=== PATIENT | female | born 1990 | race Caucasian/White ===

== ENCOUNTER 2023-10-04 10:13 | Outpatient (CLI) | payer OTHER, SELFPAY | END 2023-10-04 10:14 | disposition home or self-care (01) | PROVIDERS: PCP Family Medicine; Visit Provider Family Medicine | DX: Z00.00 Encounter for general adult medical examination without abnormal findings (principal); R53.83 Other fatigue; E55.9 Vitamin D deficiency, unspecified; E66.01 Morbid (severe) obesity due to excess calories; F41.1 Generalized anxiety disorder; Z13.6 Encounter for screening for cardiovascular disorders | CPT/HCPCS: 80048; 80061; 82306; 84443; 85025 ==

== ENCOUNTER 2023-11-08 15:51 | Outpatient (CLI) | payer OTHER, SELFPAY ==
--- NOTE | 2023-11-08 16:00 | US_ITS ---
Patient: KAREN CAMARENA Facility:?[facility] RIS Patient ID:?[id number] Site Patient ID:?[id number]. Site :?[id number] Study:?US-Pelvis TA/TV-11/08/2023 5:12:51 PM Ordering Physician:IRA Final Report: INDICATION: Menorrhagia. COMPARISON: None. TECHNIQUE: 2D mary scale and color Doppler images were acquired of the pelvis using a transabdominal and transvaginal approach. FINDINGS: Sonographic images demonstrate a normal size and smooth outer contour of the uterus. The uterus is anteverted in position. The uterus measures 11.2 cm in length by 4.5 cm in AP diameter by 7.2 cm in transverse dimension. The myometrium has uniform echotexture. The endometrial lining measures 10 mm in composite thickness. Nabothian cysts in the cervix. The right ovary measures 2.9 x 1.8 x 1.9 cm and the left ovary measures 4.1 x 3.0 x 3.0 cm. Blood flow is present within both ovaries. There is a 2.7 cm dominant follicle in the left ovary. No free fluid in the pelvic cul-de-sac. IMPRESSION: 1. Endometrial stripe is within normal limits measuring 10 mm. 2. Dominant follicle in the left ovary. 3. Exam otherwise unremarkable. Dictated by Carey Guerrero MD @ 11/09/2023 3:41:45 AM Signed by:?Carey Guerrero MD @11/09/2023 3:41:45 AM (Electronic Signature)
== END 2023-11-08 15:52 | disposition home or self-care (01) ==
LOC: US 15:52
PROVIDERS: PCP Family Medicine; Visit Provider Obstetrics & Gynecology
DX: N93.9 Abnormal uterine and vaginal bleeding, unspecified (principal); R93.89 Abnormal findings on diagnostic imaging of other specified body structures; N83.02 Follicular cyst of left ovary
CPT/HCPCS: 76830; 76856

== ENCOUNTER 2024-11-13 15:27 | Outpatient (CLI) | payer OTHER, SELFPAY | END 2024-11-13 15:28 | disposition home or self-care (01) | LOC: NFLDREF 11-15 07:03 | PROVIDERS: PCP Family Medicine; Referring Provider Family Medicine; Visit Provider Registered Nurse | DX: K21.9 Gastro-esophageal reflux disease without esophagitis (principal) | CPT/HCPCS: 87338 ==

== ENCOUNTER 2025-03-01 12:19 | Outpatient (CLI) | payer OTHER, SELFPAY | END 2025-03-01 12:20 | disposition home or self-care (01) | PROVIDERS: PCP Family Medicine; Visit Provider Family Medicine | DX: Z01.818 Encounter for other preprocedural examination (principal); K21.9 Gastro-esophageal reflux disease without esophagitis | CPT/HCPCS: 80048; 85025 ==

== ENCOUNTER 2025-03-17 10:37 | Emergency (ER) | payer OTHER, SELFPAY ==
--- OUTSIDE RECORDS SUMMARY | 2025-03-04 08:09 | XMS_ITS | Encounter Summary ---
Author Organization [facility] Address [address] [place] [id number] Care Team Providers Care [place]re Name Role Phone Dayton Hendricks MD Primary Care Provider [phone] Reason for Visit * Auth/Cert (Routine) Specialty Diagnoses / Procedures Referred By Contjam t Referred To Contact Surgery Diagnoses Gastroesophageal reflux Heartburn Gastroesophageal reflux [K21.9] Heartburn [R12] Procedures [place] UGI ENDOSCOPY DIAG W OR W/O BRUSH/WASH [place] EGD FLEXIBLE TRANSNASAL DX W/COLLJ SPEC BR/WA ESOPHAGOGASTRODUODENOSCOPY Quique Madrigal MD [facility] [address] [place] [address] [place] [address] Phone: tel: fax: [facility]Op [facility] [address] [place] [address] Phone: tel: fax: Referral ID Status Reason Start Date Expiration Date Visits Re quested Visits Authorized [id number] 1 1 Encounter Details Date Type Department Care Team (Latest Contact Info) Description 03/04/2025 8:09 AM CDT - 03/04/2025 10:59 AM CDT Hospital Encounter [facility] PreOP/PostOP [address] [place] [address] Quique Madrigal MD [facility] [address] [place] [address] [place] [address] Discharge Disposition: Home or Self Care Social History Tobacco Use Types Packs/Day Years Used Date Smoking Tobacco: Never Smokeless Tobacco: Never Tobacco Cessation:Counseling Given: Not Answered Interpersonal Safety Answer Date Record ed Do you feel physically and e motionally safe where you currently live? Yes 03/04/2025 Within the past 12 months, h ave you been hit, slapped, kicked or otherwise physically hurt by someone? No 03/04/2025 Within the past 12 months, h ave you been humiliated or emotionally abused in other ways by your partner or ex-partner? No 03/04/2025 Comments Unknown Sex and Gender Information Value Date Recorded Sex Assigned at Female 01/30/2025 1:59 PM CDT Legal Sex Female 2:43 PM CDT Gender Identity Female 01/30/2025 1:59 PM CDT Sexual Orientation Straight 01/30/2025 1: 59 PM CDT documented as of this encounter Last Filed Vital Signs Vital Sign Reading Time Taken Comments Blood Pressure 135/92 03/04/2025 10:45 AM CDT Pulse 97 03/04/2025 10:45 AM CDT Temperature 36.9 C (98.4 F) 03/04/2025 10:45 AM CDT Respiratory Rate 16 03/04/2025 10:4 5 AM CDT Oxygen Saturation 97% 03/04/2025 10: 45 AM CDT Inhaled Oxygen Concentration - - Weight 149.5 kg (329 lb 9.6 oz) 03/04/2025 8:15 AM CDT Height 167.6 cm (5' 6) 03/04/2025 8:15 AM CDT Body Mass Index 53.2 03/04/2025 8:15 AM CDT documented in this encounter Discharge Instructions * Discharge Instructions* Rylee Nguyen RN - 03/04/2025 10:12 AM CDT ESOPHAGOGASTRODUODENOSCOPY DISCHARGE INSTRUCTIONS You may not drive, use heavy equipment or consume alcohol for 24 hours because the drugs you were given may cause dizziness, drowsiness, forgetfulness and slower reaction time. Small pieces or tissue (biopsies) or polyps may have been removed. You may resume your regular diet and medications. Exception: If you had a biopsy or polypectomy, donot take aspirin, aleve (naproxen) or ibuprofen for the next 10 days. Tylenol (acetaminophen) is safe to take. Additional instructions: If you had a biopsy or polypectomy, the pathology report will be sent to your doctor. If you have not received the results within 10 days, call your doctor's office. What to watch for: Problems rarely occur after the procedure. It is important for you to be aware of the early signs of a possible complication. Call immediately if you notice any of the followin. Unusual pain or difficulty swallowing. 2. Unusual abdominal or chest pain. 3. Vomiting of blood. 4. Black or bloody stools. 5. Temperature above 100.6 degrees F * Attachments The following attachments cannot be sent through Care Everywhere. * (s) After Anesthesia (Sleep Medicine) ([place]) documented in this encounter Medications at Time of Discharge Bacillus Coagulans-Inulin (PROBIOTIC) 1-250 BILLION-MG CAPS CALCIUM-MAGNESIUM -ZINC PO escitalopram (LEXAPRO) 20 MG tablet Take 20 mg by mouth daily. 01/04/2024 fish oil-omega-3 fatty acids 1000 MG capsule fluticasone (FLONASE) 50 MCG/ACT nasal spray [place] 1 spray into both nostrils daily. loratadine (CLARITIN) 10 MG tablet Take 10 mg by mouth daily. Multiple Vitamin (MULTI-VITAMIN DAILY) TABS omeprazole (PRILOSEC) [address] capsule Take 20 mg by mouth daily. 01/04/2024 Vitamin D3 (CHOLECALCIFEROL) 25 mcg (1000 units) tablet documented as of this encounter Consult Notes * Quique Madrigal MD - 03/04/2025 8:25 AM CDT Pre-Endoscopy History and Physical Shweta Pearson Date of : 1990 Age: [age] year old Date of Procedure: 03/04/2025 Primary care provider: Hendricks, Nate Type of Endoscopy: esophagogastroduodenoscopy (upper GI endoscopy) Reason for Procedure: reflux Type of Anesthesia Anticipated: MAC HPI: Shweta is a 34 year old female who will be undergoing the above procedure. A history and physical has been performed. The patient's medications and allergies have been reviewed. The risks and benefits of the procedure and the sedation options and risks were discussed with the patient. All questions were answered and informed consent was obtained. She denies a personal or family history of anesthesia complications or bleeding disorders. Allergies Allergen Reactions Penicillins Hives and Rash Current Facility-Administered Medications Medication Dose Route Frequency Provider Last Rate Last Admin lactated ringers infusion Intravenous Continuous Walter Mejia MD lidocaine (LMX4) cream Topical Q1H PRN Walter Mejia MD lidocaine (LMX4) cream Topical Q1H PRN Quique Madrigal MD lidocaine 1 % 0.1-1 mL 0.1-1 mL Other Q1H PRN Walter Mejia MD lidocaine 1 % 0.1-1 mL 0.1-1 mL Other Q1H PRQuique Lane MD ondansetron (ZOFRAN) injection 4 mg 4 mg Intravenous Once PRN Quique Madrigal MD sodium chloride (PF) 0.9% PF flush 3 mL 3 mL Intracatheter Q8H Walter Thibodeaux MD sodium chloride (PF) 0.9% PF flush 3 mL 3 mL Intracatheter q1 min prWalter Mabry MD sodium chloride (PF) 0.9% PF flush 3 mL 3 mL Intracatheter Q8H Quique Pressley MD sodium chloride (PF) 0.9% PF flush 3 mL 3 mL Intracatheter q1 min Quique Ames MD There is no problem list on file for this patient. History reviewed. No pertinent past medical history. History reviewed. No pertinent surgical history. Social History Tobacco Use Smoking status: Never Smokeless tobacco: Never Substance Use Topics Alcohol use: Not on file History reviewed. No pertinent family history. REVIEW OF SYSTEMS: 5 point ROS negative except as noted above in HPI, including Gen., Resp., CV, GI & system review. PHYSICAL EXAM: BP (!) 140/74 (BP Location: Left arm) Pulse 101 Temp 98 ??F (36.7 ??C) (Temporal) Resp 18 Ht 1.676 m (5' 6) Wt (!) 149.5 kg (329 lb 9.6 oz) SpO2 99% BMI 53.20 kg/m?? Estimated body mass index is 53.2 kg/m?? as calculated from the following: Height as of this encounter: 1.676 m (5' 6). Weight as of this encounter: 149.5 kg (329 lb 9.6 oz). GENERAL APPEARANCE: healthy MENTAL STATUS: alert AIRWAY EXAM: Mallampatti Class I (visualization of the soft palate, fauces, uvula, anterior and posterior pillars) RESP: lungs clear to auscultation - no rales, rhonchi or wheezes CV: regular rates and rhythm DIAGNOSTICS: Not indicated IMPRESSION ASA Class 2 - Mild systemic disease PLAN: EGD The above has been forwarded to the consulting provider. Signed Electronically by: Quique Madrigal MD March 04, 2025 documented in this encounter Plan of Treatment Not on file documented as of this encounter Procedures Procedure Name Priority Date/Time Associated Diagnosis Comments SURGICAL PATHOLOGY EXAM Routine 03/04/2025 9:57 AM CDT UGI ENDOSCOPY DIAG W BIOPSY 03/04/2025 9:50 AM CDT Gastroesophageal reflux Heartburn Special Needs Pre-op done at [facility] 03/01/25. Called to have faxed at 1400 but MD had not signed it yet. Vh Nothing has been received as of 1600 03/01/25. Called again to have pre-op faxed at 0805 03/04/25.vhHigh bmi UPPER GI ENDOSCOPY Routine 03/04/2025 9:42 AM CDT documented in this encounter Results * Surgical Pathology Exam (03/04/2025 9:57 AM CDT) Case Report Surgical Pathology Report Case: [id number] Authorizing Provider: Quique Madrigal MD Collected: 03/04/2025 09:57 AM Ordering Location: [facility] Received: 03/04/2025 10:09 AM Main OR Pathologist: Darlin Verdugo MD Specimens: A) - Stomach, Body, gastric biopsies B) - Esophagus, Distal, distal esophagus biopsy C) - Esophagus, Mid, mid esophagus biopsies 03/06/2025 10:27 AM CDT LABORATORY Final Diagnosis A(1). Stomach, biopsy: - Oxyntic type gastric mucosa with mild chronic inflammation. - Negative for H. Pylori organisms on routine stains. - Negative for intestinal metaplasia. -Negative for dysplasia or malignancy B(2). Esophagus, distal, biopsy: -Squamous mucosa with focal acute inflammation and reactive epithelial changes of the type seen in reflux esophagitis -Special stains for fungal organisms (PAS) is negative. -Negative for intestinal metaplasia. -Negative for eosinophilic esophagitis. -Negative for dysplasia or malignancy. C(3). Esophagus, middle, biopsies: -Squamous mucosa with no significant pathological changes. -Negative for intestinal metaplasia. -Negative for acute or eosinophilic esophagitis. -Negative for dysplasia or malignancy. 03/06/2025 10:27 AM [facility] at 1027 CDT Clinical Information Procedure: ESOPHAGOGASTRODUOD ENOSCOPY with biopsies Pre-op Diagnosis: Gastroesophageal reflux [K21.9] Heartburn [R12] Post-op Diagnosis: K21.9 - Gastroesophageal reflux [ICD-10-CM] R12 - Heartburn [ICD-10-CM] 03/06/2025 10:27 AM CDT LABORATORY Gross Description A(1). Stomach, Body, gastric biopsies: The specimen is received in formalin, labeled with the patient's name, medical record number and other identifying information and designated g astric biopsies . It consists of 5 chapa soft tissue fragments ranging from 0.1-0.2 cm. Entirely submitted in one cassette. B(2). Esophagus, Distal, distal esophagus biopsy: The specimen is received in formalin, labeled with the patient's name, medical record number and other identifying information and designated d istal esophagus . It consists of 3 chapa soft tissue fragments ranging from 0.1-0.2 cm. Entirely submitted in one cassette. C(3). Esophagus, Mid, mid esophagus biopsies: The specimen is received in formalin, labeled with the patient's name, medical record number and other identifying information and designated m id esophagus . It consists of two chapa soft tissue fragments, each 0.2 cm. Entirely submitted in one cassette. (AZEEM Lenz) 03/04/2025 10:13 AM 03/06/2025 10:27 AM CDT LABORATORY Microscopic Description Microscopic examination was performed. 03/06/2025 10:27 AM CDT LABORATORY Special Stains Part B -Special stains for fungal organisms (PAS) is negative. All controls stain appropriately. 03/06/2025 10:27 AM CDT LABORATORY Performing Labs The technical component of this testing was completed at [facility]. Stain controls for all stains resulted within this report have been reviewed and show appropriate reactivity. 03/06/2025 10:27 AM CDT LABORATORY Case Images 03/06/2025 10:27 AM CDT LABORATORY Tissue STOMACH STRUCTURE / Unknown 03/04/2025 9:57 AM CDT 03/04/2025 10:09 AM CDT Comment:Rule out E.o.E and h .pylori Tissue specimen (specimen) STRUCTURE OF LOWER THIRD OF ESOPHAGUS / Unknown 03/04/2025 9:59 AM CDT 03/04/2025 10:09 AM CDT Tissue specimen (specimen) STRUCTURE OF MIDDLE THIRD OF ESOPHAGUS / Unknown 03/04/2025 10:00 AM CDT 03/04/2025 10:09 AM CDT us Quique Madrigal MD LAB - MIGUEL AP Final Resul t [facility] [address] Lab (1st floor, no room number) [place] [address], [facility] * UPPER GI ENDOSCOPY (03/04/2025 9:42 AM CDT) Upper GI Endoscopy [facility] ___ Patient Name: Shweta Pearson Procedure Date: 03/04/2025 9:42 AM Date of : 1990 Admit Type: Outpatient Age: 34 Gender: Female Attending MD: QUIQUE MADRIGAL MD, Total Sedation Time: Minutes of continuous bedside 1:1: Instrument Name: [id number] Gastroscope ___ Procedure: Upper GI endoscopy Indications: Suspected esophageal reflux Providers: QUIQUE MADRIGAL MD (Doctor) Referring MD: KALYANI SINHA (Referring MD) Medicines: Monitored Anesthesia Care Complications: No immediate complications. ___ Procedure: Pre-Anesthesia Assessment: - Prior to the procedure, a History and Physical was performed, and patient medications and allergies were reviewed. The patient is competent. The risks and benefits of the procedure and the sedation options and risks were discussed with the patient. All questions were answered and informed consent was obtained. Patient identification and proposed procedure were verified by the physician in the pre-procedure area. Mental Status Examination: alert and oriented. Airway Examination: normal oropharyngeal airway and neck mobility. Respiratory Examination: clear to auscultation. CV Examination: normal. Prophylactic Antibiotics: The patient does not require prophylactic antibiotics. Prior Anticoagulants: The patient has taken no anticoagulant or antiplatelet agents. ASA Grade Assessment: II - A patient with mild systemic disease. After reviewing the risks and benefits, the patient was deemed in satisfactory condition to undergo the procedure. The anesthesia plan was to use monitored anesthesia care (MAC). Immediately prior to administration of medications, the patient was re-assessed for adequacy to receive sedatives. The heart rate, respiratory rate, oxygen saturations, blood pressure, adequacy of pulmonary ventilation, and response to care were monitored throughout the procedure. The physical status of the patient was re-assessed after the procedure. After obtaining informed consent, the endoscope was passed under direct vision. Throughout the procedure, the patient's blood pressure, pulse, and oxygen saturations were monitored continuously. The Olympus Gastrointestinal Videoscope, Model #[id number]-1100 Censitrac # [id number], SN# [id number] was introduced through the mouth, and advanced to the second part of duodenum. The upper GI endoscopy was accomplished without difficulty. The patient tolerated the procedure well. Findings: The examined esophagus was normal. Biopsies were taken with a cold forceps for histology (mid & distal esophagus). The Z-line was regular and was found 40 cm from the incisors. The entire examined stomach was normal. Biopsies were taken with a cold forceps for histology. The examined duodenum was normal. Impression: - Normal esophagus. Biopsied (mid & distal). - Z-line regular, 40 cm from the incisors. - Normal stomach. Biopsied. - Normal examined duodenum. Recommendation: - Await pathology results. Procedure Code(s): --- Professional --- 10996, Esophagogastroduode noscopy, flexible, transoral; with biopsy, single or multiple CPT copyright 2021 [employer]. All rights reserved. The codes documented in this report are preliminary and upon instructional services specialist review may be revised to meet current compliance requirements. Quique Madrigal M.D. __ QUIQUE MADRIGAL MD 03/04/2025 10:05:57 AM Number of Addenda: 0 Note Initiated On: 03/04/2025 9:42 AM Procedure Date: 03/04/2025 9:42:39 AM Total Procedure Duration: 0 hours 5 minutes 40 seconds Estimated Blood Loss: Scope In: 9:55:34 AM Scope Out: 10:01:14 AM RADIOLOGY RESULTS 03/04/2025 9:42 AM CDT us Kalyani Sinha SCHEDULING CLERK QUALITY MANAGEMENT COORDINATOR PROCEDURES Final Res ult RADIOLOGY RESULTS documented in this encounter Visit Diagnoses Not on filedocumented in this encounter Administered Medications Inactive Administered Medications - up to 3 most recent administrations Medication Order MAR Action Action Date Dose Rate Site acetaminophen (TYLENOL) tablet 975 mg 975 mg, Oral, ONCE PRN, mild pain, Starting on Tue03/04/25 at 1015, For 1 dose, Maximum acetaminophen dose from all sources = 75 mg/kg/day not to exceed 4 grams/day., Phase ll dexAMETHasone (DECADRON) injection 4 mg 4 mg, Intravenous, ONCE PRN, nausea/vomiting - 2nd line, Phase II, Administer over 1 Minutes, Starting on Tue03/04/25 at 1015, For 1 dose, Administer ONLY if dexamethasone (DECADRON) NOT given in the OR. This is Step 2 of nausea and vomiting management. IF nausea vomiting NOT resolved within 30 minutes or dexamethasone (DECADRON) was given in the OR go to Step 3 prochlorperazine (COMPAZINE)., Phase ll flumazenil (ROMAZICON) injection 0.2 mg 0.2 mg, Intravenous, EVERY 1 MIN PRN, benzodiazepine reversal, over sedation, Administer over 1 Minutes, Starting on Tue03/04/25 at 1015, For 12 hours, Give over 15 seconds. If inadequate response after 45 seconds, may repeat up to a MAX total dose of 1 mg. Continue monitoring until discharge criteria are met for a minimum of 2 hours Use with caution in patients on benzodiazepine therapy. lactated ringers infusion at 10 mL/hr, Intravenous, CONTINUOUS, IF patient NOT on dialysis., Pre-procedure, Starting on Tue03/04/25 at 0830, Until Tue03/04/25 at 1304 Restarted 03/04/2025 9:45 AM CDT $New Bag 03/04/2025 8:49 AM CDT 10 mL/hr lidocaine (LMX4) cream Topical, EVERY 1 HOUR PRN, pain, with VAD insertion, Starting on Tue03/04/25 at 0818, Apply at least 30 minutes prior to VAD insertion in divided doses as needed for size of site for insertion. MAX Dose: 2.5 g ( of 5 g tube) Do NOT give if patient has a history of allergy to any local anesthetic or any tara product. Do NOT use both lidocaine intradermal/subcutaneous injection and the lidocaine cream on the same site., Pre-procedure lidocaine (LMX4) cream Topical, EVERY 1 HOUR PRN, pain, with VAD insertion, Starting on Tue03/04/25 at 0824, Apply at least 30 minutes prior to VAD insertion in divided doses as needed for size of site for insertion. MAX Dose: 2.5 g ( of 5 g tube) Do NOT give if patient has a history of allergy to any local anesthetic or any tara product. Do NOT use both lidocaine intradermal/subcutaneous injection and the lidocaine cream on the same site., Pre-procedure lidocaine 1 % 0.1-1 mL 0.1-1 mL, Other, EVERY 1 HOUR PRN, mild pain with VAD insertion, Starting on Tue03/04/25 at 0818, MAX dose 1 mL subcutaneous OR intradermal along the side of the vein in divided doses as needed for VAD insertion. Do NOT give if patient has a history of allergy to any local anesthetic or any tara product. Do NOT use both lidocaine intradermal/subcutaneous injection and the lidocaine cream on the same site., Pre-procedure lidocaine 1 % 0.1-1 mL 0.1-1 mL, Other, EVERY 1 HOUR PRN, mild pain with VAD insertion, Starting on Tue03/04/25 at 0824, MAX dose 1 mL subcutaneous OR intradermal along the side of the vein in divided doses as needed for VAD insertion. Do NOT give if patient has a history of allergy to any local anesthetic or any tara product. Do NOT use both lidocaine intradermal/subcutaneous injection and the lidocaine cream on the same site., Pre-procedure naloxone (NARCAN) injection 0.1 mg 0.1 mg, Intravenous, EVERY 2 MIN PRN, opioid reversal, Starting on Tue03/04/25 at 1015, Notify Anesthesia Provider when administering naloxone (NARCAN) for unintended sedation or respiratory depression IF all three of the following criteria are met: 1. Respiratory rate LESS than or EQUAL to 8. 2. SaO2 is LESS than 92% and/or end-tidal CO2 is GREATER than 50. 3. Patient is receiving an opioid, has unintended sedation assessed as RASS (-4) or (-5) and patient is NOT currently on mechanical ventilation. RASS scale (-4) is deep sedation with no response to voice but movement or eye opening to physical stimulation. RASS scale (-5) is unarousable. Notify Anesthesia Provider PRIOR to administering additional opioids if naloxone (NARCAN) given. Once patient has demonstrated a response to naloxone (NARCAN), continue to monitor respiratory rate, depth, oxygen saturation EVERY 15 minutes x 2, then EVERY 30 minutes x 2, then EVERY hour x 1 after each naloxone (NARCAN) dose. Monitor in Phase II for 2 hours after last naloxone (NARCAN) dose PRIOR to discharge., Phase ll naloxone (NARCAN) injection 0.2 mg 0.2 mg, Intravenous, EVERY 2 MIN PRN, opioid reversal, Starting on Tue03/04/25 at 1015, Administer intravenous route when available and notify provider when administered. For unintended sedation or respiratory depression if all of the below criteria are met: ~ respiratory rate LESS than or EQUAL to 8. ~SaO2 less than 92% and or/end-tidal CO2 is greater than 50. ~ the patient is receiving an opioid, has unintended sedations assessed as RASS (-3), and is currently not on mechanical ventilation. RASS scale moderate (-3) is movement or eye opening to voice but no eye contact. Patient Monitoring Once the patient has demonstrated a response to the naloxone, continue to monitor respiratory rate, depth, oxygen saturation and end-tidal CO2 (if available) every 15 minutes x 2, then every 30 minutes x 2, then every 1 hour x 1 after each naloxone dose. Consider transfer to ICU if patient respiratory parameters have not improved after 4 naloxone doses. naloxone (NARCAN) injection 0.2 mg 0.2 mg, Intramuscular, EVERY 2 MIN PRN, opioid reversal, Starting on Tue03/04/25 at 1015, Administer intramuscular if an intravenous route is not available and notify provider when administered. For unintended sedation or respiratory depression if all of the below criteria are met: ~ respiratory rate LESS than or EQUAL to 8. ~SaO2 less than 92% and or/end-tidal CO2 is greater than 50. ~ the patient is receiving an opioid, has unintended sedations assessed as RASS (-3), and is currently not on mechanical ventilation. RASS scale moderate (-3) is movement or eye opening to voice but no eye contact. Patient Monitoring Once the patient has demonstrated a response to the naloxone, continue to monitor respiratory rate, depth, oxygen saturation and end-tidal CO2 (if available) every 15 minutes x 2, then every 30 minutes x 2, then every 1 hour x 1 after each naloxone dose. Consider transfer to ICU if patient respiratory parameters have not improved after 4 naloxone doses. naloxone (NARCAN) injection 0.4 mg 0.4 mg, Intravenous, EVERY 2 MIN PRN, opioid reversal, Starting on Tue03/04/25 at 1015, Administer intravenous route when available and notify provider when administered. For unintended sedation or respiratory depression if all of the below criteria are met: ~ respiratory rate LESS than or EQUAL to 8. ~ SaO2 less than 92% and or/end-tidal CO2 is greater than 50. ~ the patient is receiving an opioid, has unintended sedation assessed as RASS (-4) or (-5) and patient is currently not on mechanical ventilation. RASS scale (-4) is deep sedation with no response to voice but movement or eye opening to physical stimulation. RASS scale (-5) is unarousable. Patient Monitoring Once the patient has demonstrated a response to the naloxone, continue to monitor respiratory rate, depth, oxygen saturation and end-tidal CO2 (if available) every 15 minutes x 2, then every 30 minutes x 2, then every 1 hour x 1 after each naloxone dose. Consider transfer to ICU if patient respiratory parameters have not improved after 4 naloxone doses. naloxone (NARCAN) injection 0.4 mg 0.4 mg, Intramuscular, EVERY 2 MIN PRN, opioid reversal, Starting on Tue03/04/25 at 1015, Administer intramuscular if an intravenous route is not available and notify provider when administered. For unintended sedation or respiratory depression if all of the below criteria are met: ~ respiratory rate LESS than or EQUAL to 8. ~ SaO2 less than 92% and or/end-tidal CO2 is greater than 50. ~ the patient is receiving an opioid, has unintended sedation assessed as RASS (-4) or (-5) and patient is currently not on mechanical ventilation. RASS scale (-4) is deep sedation with no response to voice but movement or eye opening to physical stimulation. RASS scale (-5) is unarousable. Patient Monitoring Once the patient has demonstrated a response to the naloxone, continue to monitor respiratory rate, depth, oxygen saturation and end-tidal CO2 (if available) every 15 minutes x 2, then every 30 minutes x 2, then every 1 hour x 1 after each naloxone dose. Consider transfer to ICU if patient respiratory parameters have not improved after 4 naloxone doses. ondansetron (ZOFRAN ODT) ODT tab 4 mg 4 mg, Oral, EVERY 6 HOURS PRN, nausea, vomiting, Starting on Tue03/04/25 at 1015, This is Step 1 of nausea and vomiting management. If nausea not resolved in 15 minutes, go to Step 2 prochlorperazine (COMPAZINE). Do not push through foil backing. Peel back foil and gently remove. Place on tongue immediately. Administration with liquid unnecessary With dry hands, peel back foil backing and gently remove tablet. Do not push oral disintegrating tablet through foil backing. Administer immediately on tongue and oral disintegrating tablet dissolves in seconds, then swallow with saliva. Liquid not required. ondansetron (ZOFRAN ODT) ODT tab 4 mg 4 mg, Oral, EVERY 30 MIN PRN, nausea/vomiting - 1st line, Phase II, Starting on Tue03/04/25 at 1015, For 2 doses, Administer if NO vascular access present. This is Step 1 of nausea and vomiting management. If nausea/vomiting not resolved in 15 minutes, go to Step 2 dexamethasone (DECADRON) IV. MAX total dose = 8 mg, including OR dosing. With dry hands, peel back foil backing and gently remove tablet. Do not push oral disintegrating tablet through foil backing. Administer immediately on tongue and oral disintegrating tablet dissolves in seconds, then swallow with saliva. Liquid not required., Phase ll ondansetron (ZOFRAN) injection 4 mg 4 mg, Intravenous, EVERY 6 HOURS PRN, nausea, vomiting, Administer over 2-5 Minutes, Starting on Tue03/04/25 at 1015, This is Step 1 of nausea and vomiting management. If nausea not resolved in 15 minutes, go to Step 2 prochlorperazine (COMPAZINE). ondansetron (ZOFRAN) injection 4 mg 4 mg, Intravenous, EVERY 30 MIN PRN, nausea/vomiting - 1st line, Phase II, Administer over 2-5 Minutes, Starting on Tue03/04/25 at 1015, For 2 doses, This is Step 1 of nausea and vomiting management. If nausea/vomiting not resolved in 15 minutes, then go to Step 2 dexamethasone (DECADRON) IV. MAX total dose = 8 mg, including OR dosing., Phase ll prochlorperazine (COMPAZINE) injection 10 mg 10 mg, Intravenous, EVERY 6 HOURS PRN, nausea, vomiting, Administer over 1-2 Minutes, Starting on Tue03/04/25 at 1015, This is Step 2 of nausea and vomiting management. If nausea not resolved in 15-30 minutes, Notify provider. prochlorperazine (COMPAZINE) injection 5 mg 5 mg, Intravenous, EVERY 6 HOURS PRN, nausea/vomiting - 3rd line, Phase II, Administer over 1-2 Minutes, Starting on Tue03/04/25 at 1015, This is Step 3 of the nausea and vomiting protocol. If nausea/vomiting not resolved in 15-30 minutes, notify Provider., Phase ll prochlorperazine (COMPAZINE) tablet 10 mg 10 mg, Oral, EVERY 6 HOURS PRN, nausea, vomiting, Starting on Tue03/04/25 at 1015, This is Step 2 of nausea and vomiting management. If nausea not resolved in 15- 30 minutes, Notify provider. sodium chloride (PF) 0.9% PF flush 3 mL 3 mL, Intracatheter, EVERY 8 HOURS SCHEDULED, First dose on Tue03/04/25 at 1400, to lock peripheral IV dormant line, Pre-procedure sodium chloride (PF) 0.9% PF flush 3 mL 3 mL, Intracatheter, EVERY 1 MIN PRN, line flush, other, to ensure patency or to lock dormant line, Starting on Tue03/04/25 at 0818, Pre-procedure sodium chloride (PF) 0.9% PF flush 3 mL 3 mL, Intracatheter, EVERY 8 HOURS SCHEDULED, First dose on Tue03/04/25 at 1400, to lock peripheral IV dormant line, Pre-procedure sodium chloride (PF) 0.9% PF flush 3 mL 3 mL, Intracatheter, EVERY 1 MIN PRN, line flush, other, to ensure patency or to lock dormant line, Starting on Tue03/04/25 at 0824, Pre-procedure documented in this encounter Active and Recently Administered Medications Times are shown in CDT. Scheduled Medication Order 03/02/2025 03/03/2025 03/04/2025 sodium chloride (PF) 0.9% PF flush 3 mL 3 mL, Intracatheter, EVERY 8 HOURS SCHEDULED, First dose on Tue03/04/25 at 1400, to lock peripheral IV dormant line, Pre-procedure sodium chloride (PF) 0.9% PF flush 3 mL 3 mL, Intracatheter, EVERY 8 HOURS SCHEDULED, First dose on Tue03/04/25 at 1400, to lock peripheral IV dormant line, Pre-procedure Continuous Medication Order 03/02/2025 03/03/2025 03/04/2025 lactated ringers infusion at 10 mL/hr, Intravenous, CONTINUOUS, IF patient NOT on dialysis., Pre-procedure, Starting on Tue03/04/25 at 0830, Until Tue03/04/25 at 1304 0849 ($New Bag - Pro vider: Cierra Haskins RN)[id number] (Paused - Provider: Eber Hood APRN CRNA - Comment: Switch to gravity)0945 (Restarted - Provider: Eber Hood APRN CRNA)1004 (Anesthesia Volume Adjustment - Provider: Eber Hood APRN CRNA) PRN Medication Order 03/02/2025 03/03/2025 03/04/2025 acetaminophen (TYLENOL) tablet 975 mg 975 mg, Oral, ONCE PRN, mild pain, Starting on Tue03/04/25 at 1015, For 1 dose, Maximum acetaminophen dose from all sources = 75 mg/kg/day not to exceed 4 grams/day., Phase ll dexAMETHasone (DECADRON) injection 4 mg 4 mg, Intravenous, ONCE PRN, nausea/vomiting - 2nd line, Phase II, Administer over 1 Minutes, Starting on Tue03/04/25 at 1015, For 1 dose, Administer ONLY if dexamethasone (DECADRON) NOT given in the OR. This is Step 2 of nausea and vomiting management. IF nausea vomiting NOT resolved within 30 minutes or dexamethasone (DECADRON) was given in the OR go to Step 3 prochlorperazine (COMPAZINE)., Phase ll flumazenil (ROMAZICON) injection 0.2 mg 0.2 mg, Intravenous, EVERY 1 MIN PRN, benzodiazepine reversal, over sedation, Administer over 1 Minutes, Starting on Tue03/04/25 at 1015, For 12 hours, Give over 15 seconds. If inadequate response after 45 seconds, may repeat up to a MAX total dose of 1 mg. Continue monitoring until discharge criteria are met for a minimum of 2 hours Use with caution in patients on benzodiazepine therapy. lidocaine (LMX4) cream Topical, EVERY 1 HOUR PRN, pain, with VAD insertion, Starting on Tue03/04/25 at 0818, Apply at least 30 minutes prior to VAD insertion in divided doses as needed for size of site for insertion. MAX Dose: 2.5 g ( of 5 g tube) Do NOT give if patient has a history of allergy to any local anesthetic or any tara product. Do NOT use both lidocaine intradermal/subcutaneous injection and the lidocaine cream on the same site., Pre-procedure lidocaine (LMX4) cream Topical, EVERY 1 HOUR PRN, pain, with VAD insertion, Starting on Tue03/04/25 at 0824, Apply at least 30 minutes prior to VAD insertion in divided doses as needed for size of site for insertion. MAX Dose: 2.5 g ( of 5 g tube) Do NOT give if patient has a history of allergy to any local anesthetic or any tara product. Do NOT use both lidocaine intradermal/subcutaneous injection and the lidocaine cream on the same site., Pre-procedure lidocaine 1 % 0.1-1 mL 0.1-1 mL, Other, EVERY 1 HOUR PRN, mild pain with VAD insertion, Starting on Tue03/04/25 at 0818, MAX dose 1 mL subcutaneous OR intradermal along the side of the vein in divided doses as needed for VAD insertion. Do NOT give if patient has a history of allergy to any local anesthetic or any tara product. Do NOT use both lidocaine intradermal/subcutaneous injection and the lidocaine cream on the same site., Pre-procedure lidocaine 1 % 0.1-1 mL 0.1-1 mL, Other, EVERY 1 HOUR PRN, mild pain with VAD insertion, Starting on Tue03/04/25 at 0824, MAX dose 1 mL subcutaneous OR intradermal along the side of the vein in divided doses as needed for VAD insertion. Do NOT give if patient has a history of allergy to any local anesthetic or any tara product. Do NOT use both lidocaine intradermal/subcutaneous injection and the lidocaine cream on the same site., Pre-procedure naloxone (NARCAN) injection 0.1 mg 0.1 mg, Intravenous, EVERY 2 MIN PRN, opioid reversal, Starting on Tue03/04/25 at 1015, Notify Anesthesia Provider when administering naloxone (NARCAN) for unintended sedation or respiratory depression IF all three of the following criteria are met: 1. Respiratory rate LESS than or EQUAL to 8. 2. SaO2 is LESS than 92% and/or end-tidal CO2 is GREATER than 50. 3. Patient is receiving an opioid, has unintended sedation assessed as RASS (-4) or (-5) and patient is NOT currently on mechanical ventilation. RASS scale (-4) is deep sedation with no response to voice but movement or eye opening to physical stimulation. RASS scale (-5) is unarousable. Notify Anesthesia Provider PRIOR to administering additional opioids if naloxone (NARCAN) given. Once patient has demonstrated a response to naloxone (NARCAN), continue to monitor respiratory rate, depth, oxygen saturation EVERY 15 minutes x 2, then EVERY 30 minutes x 2, then EVERY hour x 1 after each naloxone (NARCAN) dose. Monitor in Phase II for 2 hours after last naloxone (NARCAN) dose PRIOR to discharge., Phase ll naloxone (NARCAN) injection 0.2 mg 0.2 mg, Intravenous, EVERY 2 MIN PRN, opioid reversal, Starting on Tue03/04/25 at 1015, Administer intravenous route when available and notify provider when administered. For unintended sedation or respiratory depression if all of the below criteria are met: ~ respiratory rate LESS than or EQUAL to 8. ~SaO2 less than 92% and or/end-tidal CO2 is greater than 50. ~ the patient is receiving an opioid, has unintended sedations assessed as RASS (-3), and is currently not on mechanical ventilation. RASS scale moderate (-3) is movement or eye opening to voice but no eye contact. Patient Monitoring Once the patient has demonstrated a response to the naloxone, continue to monitor respiratory rate, depth, oxygen saturation and end-tidal CO2 (if available) every 15 minutes x 2, then every 30 minutes x 2, then every 1 hour x 1 after each naloxone dose. Consider transfer to ICU if patient respiratory parameters have not improved after 4 naloxone doses. naloxone (NARCAN) injection 0.2 mg 0.2 mg, Intramuscular, EVERY 2 MIN PRN, opioid reversal, Starting on Tue03/04/25 at 1015, Administer intramuscular if an intravenous route is not available and notify provider when administered. For unintended sedation or respiratory depression if all of the below criteria are met: ~ respiratory rate LESS than or EQUAL to 8. ~SaO2 less than 92% and or/end-tidal CO2 is greater than 50. ~ the patient is receiving an opioid, has unintended sedations assessed as RASS (-3), and is currently not on mechanical ventilation. RASS scale moderate (-3) is movement or eye opening to voice but no eye contact. Patient Monitoring Once the patient has demonstrated a response to the naloxone, continue to monitor respiratory rate, depth, oxygen saturation and end-tidal CO2 (if available) every 15 minutes x 2, then every 30 minutes x 2, then every 1 hour x 1 after each naloxone dose. Consider transfer to ICU if patient respiratory parameters have not improved after 4 naloxone doses. naloxone (NARCAN) injection 0.4 mg 0.4 mg, Intravenous, EVERY 2 MIN PRN, opioid reversal, Starting on Tue03/04/25 at 1015, Administer intravenous route when available and notify provider when administered. For unintended sedation or respiratory depression if all of the below criteria are met: ~ respiratory rate LESS than or EQUAL to 8. ~ SaO2 less than 92% and or/end-tidal CO2 is greater than 50. ~ the patient is receiving an opioid, has unintended sedation assessed as RASS (-4) or (-5) and patient is currently not on mechanical ventilation. RASS scale (-4) is deep sedation with no response to voice but movement or eye opening to physical stimulation. RASS scale (-5) is unarousable. Patient Monitoring Once the patient has demonstrated a response to the naloxone, continue to monitor respiratory rate, depth, oxygen saturation and end-tidal CO2 (if available) every 15 minutes x 2, then every 30 minutes x 2, then every 1 hour x 1 after each naloxone dose. Consider transfer to ICU if patient respiratory parameters have not improved after 4 naloxone doses. naloxone (NARCAN) injection 0.4 mg 0.4 mg, Intramuscular, EVERY 2 MIN PRN, opioid reversal, Starting on Tue03/04/25 at 1015, Administer intramuscular if an intravenous route is not available and notify provider when administered. For unintended sedation or respiratory depression if all of the below criteria are met: ~ respiratory rate LESS than or EQUAL to 8. ~ SaO2 less than 92% and or/end-tidal CO2 is greater than 50. ~ the patient is receiving an opioid, has unintended sedation assessed as RASS (-4) or (-5) and patient is currently not on mechanical ventilation. RASS scale (-4) is deep sedation with no response to voice but movement or eye opening to physical stimulation. RASS scale (-5) is unarousable. Patient Monitoring Once the patient has demonstrated a response to the naloxone, continue to monitor respiratory rate, depth, oxygen saturation and end-tidal CO2 (if available) every 15 minutes x 2, then every 30 minutes x 2, then every 1 hour x 1 after each naloxone dose. Consider transfer to ICU if patient respiratory parameters have not improved after 4 naloxone doses. ondansetron (ZOFRAN ODT) ODT tab 4 mg(Linked Group 1) 4 mg, Oral, EVERY 6 HOURS PRN, nausea, vomiting, Starting on Tue03/04/25 at 1015, This is Step 1 of nausea and vomiting management. If nausea not resolved in 15 minutes, go to Step 2 prochlorperazine (COMPAZINE). Do not push through foil backing. Peel back foil and gently remove. Place on tongue immediately. Administration with liquid unnecessary With dry hands, peel back foil backing and gently remove tablet. Do not push oral disintegrating tablet through foil backing. Administer immediately on tongue and oral disintegrating tablet dissolves in seconds, then swallow with saliva. Liquid not required. ondansetron (ZOFRAN ODT) ODT tab 4 mg(Linked Group 2) 4 mg, Oral, EVERY 30 MIN PRN, nausea/vomiting - 1st line, Phase II, Starting on Tue03/04/25 at 1015, For 2 doses, Administer if NO vascular access present. This is Step 1 of nausea and vomiting management. If nausea/vomiting not resolved in 15 minutes, go to Step 2 dexamethasone (DECADRON) IV. MAX total dose = 8 mg, including OR dosing. With dry hands, peel back foil backing and gently remove tablet. Do not push oral disintegrating tablet through foil backing. Administer immediately on tongue and oral disintegrating tablet dissolves in seconds, then swallow with saliva. Liquid not required., Phase ll ondansetron (ZOFRAN) injection 4 mg (COMPLETED) 4 mg, Intravenous, ONCE PRN, nausea, vomiting, Administer over 2-5 Minutes, Starting on Tue03/04/25 at 0824, For 1 dose, Give in ENDO pre procedure prep area., Pre-procedure 0959 ($Given - Provi amarjit: Eber Hood APRN CRNA) ondansetron (ZOFRAN) injection 4 mg(Linked Group 1) 4 mg, Intravenous, EVERY 6 HOURS PRN, nausea, vomiting, Administer over 2-5 Minutes, Starting on Tue03/04/25 at 1015, This is Step 1 of nausea and vomiting management. If nausea not resolved in 15 minutes, go to Step 2 prochlorperazine (COMPAZINE). ondansetron (ZOFRAN) injection 4 mg(Linked Group 2) 4 mg, Intravenous, EVERY 30 MIN PRN, nausea/vomiting - 1st line, Phase II, Administer over 2-5 Minutes, Starting on Tue03/04/25 at 1015, For 2 doses, This is Step 1 of nausea and vomiting management. If nausea/vomiting not resolved in 15 minutes, then go to Step 2 dexamethasone (DECADRON) IV. MAX total dose = 8 mg, including OR dosing., Phase ll prochlorperazine (COMPAZINE) injection 10 mg(Linked Group 3) 10 mg, Intravenous, EVERY 6 HOURS PRN, nausea, vomiting, Administer over 1-2 Minutes, Starting on Tue03/04/25 at 1015, This is Step 2 of nausea and vomiting management. If nausea not resolved in 15-30 minutes, Notify provider. prochlorperazine (COMPAZINE) injection 5 mg 5 mg, Intravenous, EVERY 6 HOURS PRN, nausea/vomiting - 3rd line, Phase II, Administer over 1-2 Minutes, Starting on Tue03/04/25 at 1015, This is Step 3 of the nausea and vomiting protocol. If nausea/vomiting not resolved in 15-30 minutes, notify Provider., Phase ll prochlorperazine (COMPAZINE) tablet 10 mg(Linked Group 3) 10 mg, Oral, EVERY 6 HOURS PRN, nausea, vomiting, Starting on Tue03/04/25 at 1015, This is Step 2 of nausea and vomiting management. If nausea not resolved in 15-30 minutes, Notify provider. sodium chloride (PF) 0.9% PF flush 3 mL 3 mL, Intracatheter, EVERY 1 MIN PRN, line flush, other, to ensure patency or to lock dormant line, Starting on Tue03/04/25 at 0818, Pre-procedure sodium chloride (PF) 0.9% PF flush 3 mL 3 mL, Intracatheter, EVERY 1 MIN PRN, line flush, other, to ensure patency or to lock dormant line, Starting on Tue03/04/25 at 0824, Pre-procedure Linked Groups Order Group 1: ondansetron (ZOFRAN ODT) ODT tab 4 mgJump to med 4 mg, Oral, EVERY 6 HOURS PRN, nausea, vomiting, Starting on Tue03/04/25 at 1015, This is Step 1 of nausea and vomiting management. If nausea not resolved in 15 minutes, go to Step 2 prochlorperazine (COMPAZINE). Do not push through foil backing. Peel back foil and gently remove. Place on tongue immediately. Administration with liquid unnecessary With dry hands, peel back foil backing and gently remove tablet. Do not push oral disintegrating tablet through foil backing. Administer immediately on tongue and oral disintegrating tablet dissolves in seconds, then swallow with saliva. Liquid not required. Or ondansetron (ZOFRAN) injection 4 mgJump to med 4 mg, Intravenous, EVERY 6 HOURS PRN, nausea, vomiting, Administer over 2-5 Minutes, Starting on Tue03/04/25 at 1015, This is Step 1 of nausea and vomiting management. If nausea not resolved in 15 minutes, go to Step 2 prochlorperazine (COMPAZINE). Group 2: ondansetron (ZOFRAN ODT) ODT tab 4 mgJump to med 4 mg, Oral, EVERY 30 MIN PRN, nausea/vomiting - 1st line, Phase II, Starting on Tue03/04/25 at 1015, For 2 doses, Administer if NO vascular access present. This is Step 1 of nausea and vomiting management. If nausea/vomiting not resolved in 15 minutes, go to Step 2 dexamethasone (DECADRON) IV. MAX total dose = 8 mg, including OR dosing. With dry hands, peel back foil backing and gently remove tablet. Do not push oral disintegrating tablet through foil backing. Administer immediately on tongue and oral disintegrating tablet dissolves in seconds, then swallow with saliva. Liquid not required., Phase ll Or ondansetron (ZOFRAN) injection 4 mgJump to med 4 mg, Intravenous, EVERY 30 MIN PRN, nausea/vomiting - 1st line, Phase II, Administer over 2-5 Minutes, Starting on Tue03/04/25 at 1015, For 2 doses, This is Step 1 of nausea and vomiting management. If nausea/vomiting not resolved in 15 minutes, then go to Step 2 dexamethasone (DECADRON) IV. MAX total dose = 8 mg, including OR dosing., Phase ll Group 3: prochlorperazine (COMPAZINE) injection 10 mgJump to med 10 mg, Intravenous, EVERY 6 HOURS PRN, nausea, vomiting, Administer over 1-2 Minutes, Starting on 03/04/25 at 1015, This is Step 2 of nausea and vomiting management. If nausea not resolved in 15-30 minutes, Notify provider. Or prochlorperazine (COMPAZINE) tablet 10 mgJump to med 10 mg, Oral, EVERY 6 HOURS PRN, nausea, vomiting, Starting on Tue03/04/25 at 1015, This is Step 2 of nausea and vomiting management. If nausea not resolved in 15- 30 minutes, Notify provider. documented in this encounter Care Teams [place] Relationship Specialty Start Date End Date Dayton Hendricks MD [facility] [address] [place] [address] PCP - General Family Medicine 01/30/25 documented as of this encounter
--- OUTSIDE RECORDS SUMMARY | 2025-03-04 09:45 | XMS_ITS | Encounter Summary ---
Author Organization [facility] Address [address] [place] [address]. [place] [address] Care Team Providers Care Hub Cutter Name Role Phone Dayton Hendricks MD Primary Care Provider Reason for Visit * Auth/Cert (Routine) Specialty Diagnoses / Procedures Referred By Contac t Referred To Contact Surgery Diagnoses Gastroesophageal reflux Heartburn Gastroesophageal reflux [K21.9] Heartburn [R12] Procedures PA UGI ENDOSCOPY DIAG W OR W/O BRUSH/WASH PA EGD FLEXIBLE TRANSNASAL DX W/COLLJ SPEC BR/WA ESOPHAGOGASTRODUODENOSCOPY Quique Madrigal MD [facility] [address] [place] [address] [address] [place] [address] Phone: tel: fax: [facility]Op Services [address] [place] [address] Phone: tel: fax: Referral ID Status Reason Start Date Expiration Date Visits Re quested Visits Authorized [id number] 1 1 Encounter Details Date Type Department Care Team (Late st Contact Info) Description 03/04/2025 9:45 AM CDT Anesthesia Event [facility] [address] [place] [address] Amanda Pagan MD [facility] [place] [address] [facility] [address] [place] [address] Anesthesia Record Procedure Summary Procedure Name Responsible Anesthesiologist Anesthesia Start Time Anesthesia Stop Time Esophagogastroduodenoscopy w ith biopsies (Mouth) Amanda Pagan MD 03/04/25 0945 03/04/25 1009 Events Date Time Event Comment 03/04/2025 0945 An Start Anesthesia Star t is defined as when the anesthesia provider assumed care, began anesthesia prep, remained continuously present with the patient, and excludes all time for performing the pre-anesthesia evaluation. The Pre-Anesthesia Evaluation was completed before Anesthesia Start. 0950 An Start Data 0953 AN REASSESS I attest that I have identified and re-evaluated the patient immediately before the induction of anesthesia and I am satisfied that the anesthetic plan is suitable for the patient's condition and procedure. The first vital signs recorded are pre-induction. Eber Hood APRN CRNA 0953 Anesthesia Ready for Procedu re 0953 Timeout 1004 an stop data 1009 An Stop Electronically signed by Eber Hood APRN CRNA on March 04, 2025 10:09 AM Meds Name Total lidocaine 2% 100 mg propofol drip mcg/kg/min 304.45 mg ketamine 10 mg/mL 20 mg glycopyrrolate 0.2 mg/mL 0.2 mg ondansetron (ZOFRAN) injection 4 mg 4 mg lactated ringers infusion 600 mL * Agents Name O2 N2O Air Exp Sevoflurane Exp Isoflurane Exp Desflurane Ins Sevoflurane Ins Isoflurane Ins Desflurane * Blood No blood administrations on file. Lines, Drains, and Airways Type Details Placement Removal Incision/Surgical Site No Incision; 02/19 12/14; 1002; Mouth 03/04/25 1002 by Naomi Kilgore, MG Peripheral IV 03/04/25; 0849; 20 G ; B Fox; Left, Posterior; Hand; Chlorhexidine; None; 1; Tolerated well 03/04/25 0849 by Cierra Haskins RN 03/04/25 1159 by Inpatient, Nurse documented in this encounter Social History Tobacco Use Types Packs/Day Years Used Date Smoking Tobacco: Never Smokeless Tobacco: Never Interpersonal Safety Answer Date Record ed Do [...] PM CDT documented as of this encounter OR Notes * Anesthesia Postprocedure Evaluation - Amanda Pagan MD - 03/04/2025 11:39 AM CDT Patient: Shweta Pearson Procedure: Procedure(s): ESOPHAGOGASTRODUODENOSCOPY with biopsies Anesthesia Type: MAC Note: Disposition: Outpatient Postop Pain Control: Uneventful Sign Out: Well controlled pain PONV: No Neuro/Psych: Uneventful Sign Out: Acceptable/Baseline neuro status Airway/Respiratory: Uneventful Sign Out: Acceptable/Baseline resp. status CV/Hemodynamics: Uneventful Sign Out: Acceptable CV status; No obvious hypovolemia; No obvious fluid overload Other NRE: DID A NON-ROUTINE EVENT OCCUR? No Last vitals: Vitals Value Taken Time BP 135/92 03/04/25 10:48 Temp 98.4 ??F (36.9 ??C) 03/04/25 10:45 Pulse 91 03/04/25 10:48 Resp 16 03/04/25 10:45 SpO2 98 % 03/04/25 10:47 Vitals shown include unfiled device data. Electronically Signed By: Amanda Pagan MD March 04, 2025 11:39 AM * Anesthesia Preprocedure Evaluation - Amanda Pagan MD - 03/04/2025 9:14 AM CDT Anesthesia Pre-Procedure Evaluation Patient: Shweta Pearson : 1990 Procedure : Procedure(s): ESOPHAGOGASTRODUODENOSCOPY History reviewed. No pertinent past medical history. History reviewed. No pertinent surgical history. Allergies Allergen Reactions Penicillins Hives and Rash Social History Tobacco Use Smoking status: Never Smokeless tobacco: Never Substance Use Topics Alcohol use: Not on file Wt Readings from Last 1 Encounters: 03/04/25 (!) 149.5 kg (329 lb 9.6 oz) Anesthesia Evaluation ROS/MED HX ENT/Pulmonary: - neg pulmonary ROS Neurologic: Cardiovascular: - neg cardiovascular ROS METS/Exercise Tolerance: Hematologic: Musculoskeletal: GI/Hepatic: (+) GERD, Renal/Genitourinary: Endo: (+) Obesity (BMI 53), Psychiatric/Substance Use: Infectious Disease: Malignancy: Other: Physical Exam Airway Mallampati: II TM distance: >3 FB Neck ROM: full Mouth opening: >= 4 cm Cardiovascular - normal exam Dental Pulmonary - normal exam Neurological Other Findings OUTSIDE LABS: CBC: No results found for: WBC, HGB, HCT, PLT BMP: No results found for: NA, POTASSIUM, CHLORIDE, CO2, BUN, CR, GLC COAGS: No results found for: PTT, INR, FIBR POC: No results found for: BGM, HCG, HCGS HEPATIC: No results found for: ALBUMIN, PROTTOTAL, ALT, AST, GGT, ALKPHOS, BILITOTAL,BILIDIRECT, GOLDEN OTHER: No results found for: PH, LACT, A1C, BONNIE, PHOS, MAG, LIPASE, AMYLASE, TSH,T4, T3, CRP, SED Anesthesia Plan ASA Status: 3 NPO Status: NPO Appropriate Anesthesia Type: MAC. Airway: natural airway. Maintenance: TIVA. Techniques and Equipment: - Monitoring Plan: standard ASA monitoring Consents Anesthesia Plan(s) and associated risks, benefits, and realistic alternatives discussed. Questions answered and patient/collections representative(s) expressed understanding. - Discussed: OUTSIDE PHYSICAL DAMAGE APPRAISER - Discussed with: Patient Postoperative Care Pain management: non-narcotic analgesics. Comments: Amanda Pagan MD I have reviewed the pertinent notes and labs in the chart from the past 30 days and (re)examined the patient. Any updates or changes from those notes are reflected in this note. Clinically Significant Risk Factors Present on Admission # Morbid Obesity: Estimated body mass index is 53.2 kg/m?? as calculated from the following: Height as of this encounter: 1.676 m (5' 6). Weight as of this encounter: 149.5 kg (329 lb 9.6 oz). documented in this encounter Miscellaneous Notes * Anesthesia Care Transfer Note - Eber Hood APRN CRNA - 03/04/2025 10:09 AM CDT Patient: Shweta Pearson Procedure: Procedure(s): ESOPHAGOGASTRODUODENOSCOPY with biopsies Diagnosis: Gastroesophageal reflux [K21.9] Heartburn [R12] Diagnosis Additional Information: No value filed. Anesthesia Type: MAC Note: Oropharynx: oropharynx clear of all foreign objects and spontaneously breathing Level of Consciousness: drowsy Oxygen Supplementation: room air Independent Airway: airway patency satisfactory and stable Dentition: dentition unchanged Vital Signs Stable: post-procedure vital signs reviewed and stable Report to RN Given: handoff report given Patient transferred to: Phase II Handoff Report: Identifed the Patient, Identified the Reponsible Provider, Reviewed the pertinent medical history, Discussed the surgical course, Reviewed Intra-OP anesthesia mangement and issues during anesthesia, Set expectations for post-procedure period and Allowed opportunity for questions andacknowledgement of understanding Vitals: Vitals Value Taken Time BP Temp Pulse Resp SpO2 95 % 03/04/25 10:08 Vitals shown include unfiled device data. Electronically Signed By: Eber Hood APRN CRNA March 04, 2025 10:09 AM documented in this encounter Plan of Treatment Not on file documented as of this encounter Visit Diagnoses Not on filedocumented in this encounter Administered Medications Inactive Administered Medications - up to 3 most recent administrations Medication Order MAR Action Action Date Dose Rate Site glycopyrrolate (ROBINUL) injection Intravenous, PRN, Administer over 1-2 Minutes, Starting on Tue03/04/25 at 0946, Anesthesia Intra-op $Given 03/04/2025 9:46 AM CDT 0.2 mg ketamine (KETALAR) injection Intravenous, PRN, Administer over 2-5 Minutes, Starting on Tue03/04/25 at 0952, Anesthesia Intra-op $Given 03/04/2025 9:53 AM CDT 10 mg $Given 03/04/2025 9:52 AM CDT 10 mg lactated ringers infusion at 10 mL/hr, Intravenous, CONTINUOUS, IF patient NOT on dialysis., Pre-procedure, Starting on Tue03/04/25 at 0830, Until Tue03/04/25 at 1304 Restarted 03/04/2025 9:45 AM CDT $New Bag 03/04/2025 8:49 AM CDT 10 mL/hr lidocaine 2% injection (MDV) Intravenous, PRN, Starting on Tue03/04/25 at 0946, Anesthesia Intra-op $Given 03/04/2025 9:46 AM CDT 100 mg ondansetron (ZOFRAN) injection 4 mg 4 mg, Intravenous, ONCE PRN, nausea, vomiting, Administer over 2-5 Minutes, Starting on Tue03/04/25 at 0824, For 1 dose, Give in ENDO pre procedure prep area., Pre-procedure $Given 03/04/2025 9:59 AM CDT 4 mg propofol (DIPRIVAN) infusion Intravenous, CONTINUOUS PRN, Starting on Tue03/04/25 at 0951, Anesthesia Intra-op $Given 03/04/2025 9:54 AM CDT 50 mg $Given 03/04/2025 9:53 AM CDT 20 mg $Given 03/04/2025 9:52 AM CDT 70 mg documented in this encounter Care Teams Hub Cutter Relationship Specialty Start Date End Date Dayton Hendricks MD [facility] [address] [address] PCP - General Family Medicine 01/30/25 documented as of this encounter
--- OUTSIDE RECORDS SUMMARY | 2025-03-04 10:01 | XMS_ITS | Encounter Summary ---
Author Organization [facility] Address [address] [place] [address] Care Team Providers Care Mobile Home Mechanic Name Role Phone Dayton Hendricks MD Primary Care Provider [phone] Reason for Visit * Auth/Cert (Routine) Specialty Diagnoses / Procedures Referred By Parish t Referred To Contact Surgery Diagnoses Gastroesophageal reflux Heartburn Gastroesophageal reflux [K21.9] Heartburn [R12] Procedures AR UGI ENDOSCOPY DIAG W OR W/O BRUSH/WASH AR EGD FLEXIBLE TRANSNASAL DX W/COLLJ SPEC BR/WA ESOPHAGOGASTRODUODENOSCOPY Quique Madrigal MD [facility] [address] [place] [address] [place] [address] Phone: tel: fax: [facility] PeriOp Services [address] [place] [address] Phone: tel: fax: Referral ID Status Reason Start Date Expiration Date Visits Re quested Visits Authorized [id number] 1 1 Encounter Details Date Type Department Care Team (Latest Contact Info) Description 03/04/2025 10:01 AM CDT - 03/04/2025 10:[address] [facility] [address] [place] [address] Quique Madrigal MD [facility] [address] [place] [address] Esophagogastroduodenoscopy with biopsies Surgery Details Date/Time Status Location OR Service Patient Class Case Class Case Type Trauma Case? 03/04/2025 10:01 AM Posted [facility] OR OR 05 Gastroenterology Same Day Surgery Elective Panel 1 Procedure LRB Anes Op Region Wound Class Comments Esophagogastroduodenoscopy with biopsies N/A MAC Mouth N/A Surgeon Surgeon Role Service Panel Quique Madrigal MD Primary Gastroenterology 1 Special Needs Pre-op done at [facility] 03/01/25. Called to have faxed at 1400 but had not signed it yet. Vh Nothing has been received as of 1600 03/01/25. Called again to have pre-op faxed at 0805 03/04/25.vhHigh bmi documented in this encounter Social History Tobacco [...] Everywhere. * (s) After Anesthesia (Sleep Medicine) (Israeli) documented in this encounter Medications at Time of Discharge Bacillus Coagulans-Inulin (PROBIOTIC) 1-250 BILLION-MG CAPS CALCIUM-MAGNESIUM -ZINC PO escitalopram (LEXAPRO) 20 MG tablet Take 20 mg by mouth daily. 01/04/2024 fish oil-omega-3 fatty acids 1000 MG capsule fluticasone (FLONASE) 50 MCG/ACT nasal spray Perry 1 spray into both nostrils daily. loratadine [...] Date of Procedure: 03/04/2025 Primary care provider: Dayton Hendricks Type of Endoscopy: esophagogastroduodenoscopy (upper GI endoscopy) [...] % 0.1-1 mL 0.1-1 mL Other Q1H MARILEEN Quique Madrigal MD ondansetron (ZOFRAN) injection 4 mg 4 mg Intravenous Once PRN Quique Madrigal MD sodium chloride (PF) 0.9% PF flush 3 mL 3 mL Intracatheter Q8H [facility] Walter Mejia MD sodium chloride (PF) 0.9% PF flush 3 mL 3 mL Intracatheter q1 min prn Walter Mejia MD sodium chloride (PF) 0.9% PF flush 3 mL 3 mL Intracatheter Q8H BO Quique Madrigal MD sodium chloride (PF) 0.9% PF flush 3 mL 3 mL Intracatheter q1 min prn Quique Madrigal MD There is no problem list on [...] reflux Heartburn Special Needs Pre-op done at [facility] 03/01/25. Called to have faxed at 1400 but MD had not signed it yet. Nothing has been received as of 1600 03/01/25. Called again to have pre-op faxed at 0805 03/04/25.vhHigh bmi UPPER GI ENDOSCOPY Routine 03/04/2025 9:42 AM CDT documented in this encounter Results * Surgical Pathology Exam (03/04/2025 9:57 AM CDT) Case Report Surgical Pathology Report Case: [id number] Authorizing Provider: Quique Madrigal MD Collected: 03/04/2025 09:57 AM Ordering Location: [facility] Received: 03/04/2025 10:09 AM Main OR Pathologist: Darlin Verdugo MD Specimens: A) - Stomach, Body, gastric biopsies B) - Esophagus, Distal, distal esophagus biopsy C) - Esophagus, Mid, mid esophagus biopsies 03/06/2025 10:27 AM CDT [facility] Final Diagnosis A(1). Stomach, biopsy: - [...] for dysplasia or malignancy. 03/06/2025 10:27 AM CDT [facility] at 1027 CDT Clinical Information Procedure: ESOPHAGOGASTRODUOD ENOSCOPY with biopsies Pre-op Diagnosis: Gastroesophageal reflux [K21.9] Heartburn [R12] Post-op Diagnosis: K21.9 - Gastroesophageal reflux [ICD-10-CM] R12 - Heartburn [ICD-10-CM] 03/06/2025 10:27 AM CDT [facility] Gross Description A(1). Stomach, Body, gastric [...] 0.2 cm. Entirely submitted in one cassette. (AZEME Lenz) 03/04/2025 10:13 AM 03/06/2025 10:27 AM [facility] Microscopic Description Microscopic examination was performed. 03/06/2025 10:27 AM [facility] Special Stains Part B -Special stains for fungal organisms (PAS) is negative. All controls stain appropriately. 03/06/2025 10:27 AM [facility] Performing Labs The technical component of this testing was completed at [facility]. Stain controls for all stains resulted within this report have been reviewed and show appropriate reactivity. 03/06/2025 10:27 AM [facility] Case Images 03/06/2025 10:27 AM [facility] Tissue STOMACH STRUCTURE / Unknown 03/04/2025 [...] Quique Madrigal MD LAB - MIGUEL AP Miguel Resul t [facility] Acute Care Lab [address] [facility] (1st floor, no room number) [place] [address], [place] * UPPER GI ENDOSCOPY (03/04/2025 9:42 AM CDT) Upper GI Endoscopy [facility] ___ Patient Name: Shweta Guadalupe Michel Procedure Date: 03/04/2025 9:42 AM Date of : 1990 Admit Type: Outpatient Age: 34 Gender: Female Attending MD: QUIQUE MADRIGAL MD, Total Sedation Time: Minutes of continuous bedside 1:1: Instrument Name: [id number] Gastroscope ___ Procedure: Upper GI endoscopy Indications: [...] Olympus Gastrointestinal Videoscope, Model #[id number] Censitrac # [id number], SN# [id number] was introduced through the mouth, and advanced [...] pathology results. Procedure Code(s): --- Professional --- 69923, Esophagogastroduode noscopy, flexible, transoral; with biopsy, single or multiple CPT copyright 2021 [employer]. All rights reserved. The codes documented in this report are preliminary and upon monorail crane operator review may be revised to meet current compliance requirements. Quique Madrigal M.D. __ QUIQUE MADRIGAL MD 03/04/2025 10:05:57 AM Number of Addenda: 0 Note Initiated On: 03/04/2025 9:42 AM Procedure Date: 03/04/2025 9:42:39 AM Total Procedure Duration: 0 hours 5 minutes 40 seconds Estimated Blood Loss: Scope In: 9:55:34 AM Scope Out: 10:01:14 AM RADIOLOGY RESULTS 03/04/2025 9:42 AM CDT us Kalyani Sinha DIRECTOR STRATEGIC ACCOUNT MANAGEMENT DISHCLOTH FOLDER PROCEDURES Final Res ult RADIOLOGY RESULTS documented in this encounter Visit Diagnoses Diagnosis Gastroesophageal reflux Esophageal reflux Heartburn documented in this encounter Administered Medications Inactive Administered [...] gravity)0945 (Restarted - Provider: Eber Hood APRN COURT ADMINISTRATOR)1004 (Anesthesia Volume Adjustment - Provider: Eber Hood [...] Pre-procedure 0959 ($Given - Provi amarjit: Eber Hood, DIRECTOR STRATEGIC ACCOUNT MANAGEMENT COURT ADMINISTRATOR) ondansetron (ZOFRAN) injection 4 mg(Linked Group 1) [...] provider. documented in this encounter Care Teams Mobile Home Mechanic Relationship Specialty Start Date End Date Dayton Hendricks MD [facility] 1980. [place] [address] PCP - General Family Medicine 01/30/25 documented as of this encounter
--- OUTSIDE RECORDS SUMMARY | 2025-03-17 10:39 | XMS_ITS | Clinical Summary ---
Author Organization [facility] Address [address], [place] [address] Care Team Providers Care Aerosol Supervisor Name Role Phone Clinician, Not Found MD Primary Care Provider Un available Source Comments You are receiving this document as you are listed as the primary care provider,follow-up provider, or the patient has been referred to you for consultation.This is in compliance with the Medicare andMedicaid EHR Incentive Program,which states Providers who transition their patient to another setting of careor provider of care or refers their patient to another provider of care shouldprovide summary care record for each transition of care or referral. [facility] Allerg[facility] Active Allergy Reactions Criticality Noted Date Comments Penicillins Hives,Rash High 01/27/2024 Medications * This document contains information received from the source organization and may not represent a complete record from that organization. B Complex Vitamins (B COMPLEX 1 OR) Active Bacillus Coagulans-Inuli n (PROBIOTIC) 1-250 BILLION-MG CAPS Acti ve Calcium-Magnesi um-Zinc 333-133-5 MG Active Cholecalciferol (VITAMIN D) 25 MCG (1000 UT) TABS Active escitalopram oxalate (LEXAPRO) 20 MG tablet Take 1 Tablet (20 mg) by mouth daily. 01/04/2024 Active fluticasone propionate (FLONASE ALLERGY RELIEF) 50 MCG/ACT nasal solution Activ e loratadine (CLARITIN) 10 MG tablet Active Multiple Vitamin (MULTI-VITAMIN DAILY) TABS Active omega-3 fatty acids (FISH OIL) 1000 MG capsule Active omeprazole (PRILOSEC) 20 MG capsule Take 1 Capsule (20 mg) by mouth daily. 01/04/2024 Active Active Problems Problem Noted Date Diagnosed Date Binge-eating disorder, mild 03/23/2024 Anxiety 01/27/2024 Depression 01/27/2024 GERD (gastroesophageal reflux disease) Migraine 01/27/2024 Menometrorrhagia 01/27/2024 Morbid obesity with BMI of 50.0-59.9, adult 02/2024 Social History Tobacco Use Types Packs/Day Years Used Date Smoking Tobacco: Former Cigarettes Q uit: 2008 Smokeless Tobacco: Never Tobacco Cessation:Counseling Given: Not Answered Alcohol Use Standard Drinks/Week Comments Not Currently 0 (1 standard drink = 0.6 oz pur e alcohol) PHQ-2 Answer Date Recorded PHQ-2 Score 0 03/11/2025 Comments Unknown Sex and Gender Information Value Date Recorded Sex Assigned at Female 01/26/2024 8:39 AM CDT Legal Sex Female 9:27 AM COLD ROLLING MACHINE SETTER Gender Identity Female 01/26/2024 8:39 AM CDT Sexual Orientation Straight 01/26/2024 8: 39 AM CDT Last Filed Vital Signs Vital Sign Reading Time Taken Comments Blood Pressure 130/72 09/04/2024 1:35 PM COLD ROLLING MACHINE SETTER Pulse 100 09/04/2024 1:35 PM COLD ROLLING MACHINE SETTER Temperature 36.7 C (98.1 F) 09/04/2024 1:06 PM COLD ROLLING MACHINE SETTER Respiratory Rate - - Oxygen Saturation - - Inhaled Oxygen Concentration - - Weight 148.8 kg (328 lb) 12/27/2024 10: 26 AM CDT home weight, pt report Height 167.6 cm (5' 6) 10/18/2024 9:38 AM COLD ROLLING MACHINE SETTER Body Mass Index 52.94 10/18/2024 9:38 AM COLD ROLLING MACHINE SETTER Plan of Treatment Health Maintenance Due Date Last Done Comments Cervical Cancer Screening Due 1990 Diabetes Screening- (based on age and BMI) 1990 Hep C Screening (Preventive Services) 1990 HIV Screening (Preventive Services) 2005 Adult Preventive Visit 11/12/2007 HepB Vaccine (1) 2008 COVID-19 Vaccine ( season) 2024 Influenza Vaccine (#1) 2025 , 06/26/2019, 06/28/2018, Additional history exists DTaP/Tdap/Td Vaccine (3 - Tdap) 11/03/2027 11/02/2017, 02/23/2013 Zoster/Shingles Vaccine (1 of 2) 11/12/2039 HPV Vaccine Aged Out No longer eligi ble based on patient's age to complete this topic HepA Vaccine Aged Out No longer eligi ble based on patient's age to complete this topic Hib Vaccine Aged Out No longer eligi ble based on patient's age to complete this topic IPV (Polio) Vaccine Aged Out No longe r eligible based on patient's age to complete this topic MCV4 Vaccine Aged Out No longer eligi ble based on patient's age to complete this topic Meningococcal B Vaccine Aged Out No l onger eligible based on patient's age to complete this topic Pneumococcal Vaccine Aged Out No long er eligible based on patient's age to complete this topic Insurance FULLY INSURED Care Teams Aerosol Supervisor Relationship Specialty Start Date End Date Clinician, Not Found, [place] [address] PCP - General 07/26/24
--- OUTSIDE RECORDS SUMMARY | 2025-03-17 10:39 | XMS_ITS | Encounter Summary ---
Author Organization [facility] Address [address] [place], [place] [address]. [place] [address] Care Team Providers Care Vineyardist Name Role Phone Dayton Hendricks MD Primary Care Provider [phone] Encounter Details Date Type Department Care Team (Latest Contact Info) Description 03/04/2025 Travel Social History Tobacco Use Types Packs/Day Years [...] PM CDT documented as of this encounter Plan of Treatment Not on file documented as of this encounter Visit Diagnoses Not on filedocumented in this encounter Care Teams Vineyardist Relationship Specialty Start Date End Date Dayton Hendricks MD [facility] [address] [place] [address] PCP - General Family Medicine 01/30/25 documented as of this encounter
--- OUTSIDE RECORDS SUMMARY | 2025-03-17 10:39 | XMS_ITS | Clinical Summary ---
Author Organization [facility] Address [address] [place] [address] Phone Care Team Providers Care Ironworker Machine Operator Name Role Phone Namrata MENDEZ, Nasir Marshall Conditions or Problems Problem Name Problem Code Onset Date Status Entry Date Provider Comment Standard Description Annotate Median neuropathy, bilateral 983322413 (SNOMED CT) Active Vikki Winchester Lesion of median nerve Arm pain 958509439 (SNOMED CT) Active Nasir Ott MD Pain in upper limb Paresthesia, hands 956591452 (SNOMED CT) Active Nasir Ott MD Paresthesia of hand Medications No information available. Medications Administered No information available. Allergies, Adverse Reactions, Alerts No information available. Results Date Name Value Unit Range Flag Description Internal Other: Authorizatio n - OBS [email or web address] Yes Authoriza tion: Release of Information - Authorize [facility] - Payment and Healthcare Operations ROIAUTHOTHER Yes Authoriz ation: Release of Information - Authorize Others/Insurance - Payment and Healthcare Operations HIECONSENT Yes Consent To Release information to the Health Information Exchange (HIE) [email or web address] Yes Authorizat ion: Authorization for [facility] to leave messages, voicemail, send text messages, send emails AUTHRELHCARE Yes Authoriz ation: Release/Retrieval of Information to/from Healthcare Facilities, Pharmacy Benefit Payers and Providers AUTHPRIVPRAC Yes Authoriz ation: Notice of privacy practices AUTHBENEFIT Yes Authoriza tion: Assignment of Benefits and Payment Agreement Internal Other: Verbal Autho rization/Emergency Contact - OBS VERBAL_EMER Done Verbal au thorization and emergency contact Plan of Care No information available. Procedures Code Procedure Name Date Entry Date [facility]-04408 Nerve Conduction 11-12 studies CPT-68341 EMG with NCS (5+ muscles) - 2 limbs 03/30 Vital Signs No information available. Immunizations No information available. Advance Directives No information available.
--- OUTSIDE RECORDS SUMMARY | 2025-03-17 10:39 | XMS_ITS | Clinical Summary ---
Author Organization [facility] Address [address] [place] [address] Care Team Providers Care Officer Captain Name Role Phone Dayton Hendricks MD Primary Care Provider Allergies Active Allergy Reactions Criticality Noted Date Comments Penicillins Hives,Rash High 01/27/2024 Medications Bacillus Coagulans-Inuli n (PROBIOTIC) 1-250 BILLION-MG CAPS Acti ve CALCIUM-MAGNESI UM-ZINC PO Active Vitamin D3 (CHOLECALCIFERO L) 25 mcg (1000 units) tablet Active escitalopram (LEXAPRO) 20 MG tablet Take 20 mg by mouth daily. 01/04/2024 Active fluticasone (FLONASE) 50 MCG/ACT nasal spray [place] 1 spray into both nostrils daily. Active loratadine (CLARITIN) 10 MG tablet Take 10 mg by mouth daily. Active Multiple Vitamin (MULTI-VITAMIN DAILY) TABS Active fish oil-omega-3 fatty acids 1000 MG capsule Acti ve omeprazole (PRILOSEC) [address] capsule Take 20 mg by mouth daily. 01/04/2024 Active Encounters Date Type Department Care Team Description 03/04/2025 10:01 AM CDT - 03/04/2025 10:51 AM CDT Surgery [facility] [address] [place] [id number] Quique Carlson MD Esophagogastroduodenoscopy with biopsies 03/04/2025 9:45 AM CDT Anesthesia Event [facility] [address] [place] [address] Amanda Pagan MD 03/04/2025 8:09 AM CDT - 03/04/2025 10:59 AM CDT Hospital Encounter [facility] PreOP/PostOP [address] [place] [address] Quique Carlson MD Discharge Disposition: Home or Self Care 03/04/2025 Travel 01/30/2025 MyC Medical Advice Initial Department [facility] 01/30/2025 MyC Medical Advice Initial Department [facility] from Last 3 Months Social History Tobacco Use Types Packs/Day Years [...] Orientation Straight 01/30/2025 1: 59 PM CDT Last Filed Vital Signs Vital Sign [...] Mass Index 53.2 03/04/2025 8:15 AM CDT Plan of Treatment Health Maintenance Due Date Last Done Comments ADVANCE CARE PLANNING 1989 ANNUAL REVIEW OF HM ORDERS 1989 DIABETES SCREENING 1989 YEARLY PREVENTIVE VISIT 1992 HIV SCREENING 2004 HEPATITIS C SCREENING 11/12/2007 HEPATITIS B VACCINE (1 of 3 - 19+ 3-dose series) 2008 PAP 2010 COVID-19 VACCINE (1 - 2023- season) 2024 PHQ-2 (once per calendar year) 2024 INFLUENZA VACCINE (#1) 2025 , 06/26/2019, 06/28/2018, Additional history exists DTAP/TDAP/TD VACCINE (3 - Td or Tdap) 11/03/2027 11/02/2017, 02/23/2013 ZOSTER VACCINE (1 of 2) 11/12/2039 HPV VACCINE (No Doses Required) Completed MENINGITIS VACCINE Aged Out No longer eligible based on patient's age to complete this topic PNEUMOCOCCAL VACCINE: PEDIATRICS (0 to 5 YEARS) AND AT-RISK PATIENTS (6 to 49 YEARS) Aged Out No longer eligible based on patient's age to complete this topic Procedures Procedure Name Priority Date/Time Associated Diagnosis Comments SURGICAL PATHOLOGY EXAM Routine 03/04/2025 9:57 AM CDT UGI ENDOSCOPY DIAG W BIOPSY 03/04/2025 9:50 AM CDT Gastroesophageal reflux Heartburn Special Needs Pre-op done at [facility] 03/01/25. Called to have faxed at 1400 but had not signed it yet. Vh Nothing has been received as of 1600 03/01/25. Called again to have pre-op faxed at 0805 03/04/25.vhHigh bmi UPPER GI ENDOSCOPY Routine 03/04/2025 9:42 AM CDT from Last 3 Months Results * Surgical Pathology Exam (03/04/2025 9:57 AM CDT) Case Report Surgical Pathology Report Case: [id number] Authorizing Provider: Quique Carlson MD Collected: 03/04/2025 09:57 AM Ordering Location: [facility] Received: 03/04/2025 10:09 AM Main OR [...] dysplasia or malignancy. 03/06/2025 10:27 AM CDT LABORATORY at 1027 CDT Clinical Information Procedure: [...] component of this testing was completed at [facility]. Stain controls for all stains [...] CDT 03/04/2025 10:09 AM CDT us Quique Carlson MD LAB - MIGUEL AP Final Resul t [facility] [address] (1st floor, no room number) [place] [address], [place] * UPPER GI ENDOSCOPY (03/04/2025 9:42 AM CDT) Upper GI Endoscopy [facility] ___ Patient Name: Shweta Camarena Procedure Date: 03/04/2025 9:42 AM Date of : 1990 Admit Type: Outpatient Age: 34 Gender: Female Attending MD: QUIQUE CARLSON MD, Total Sedation Time: Minutes of continuous bedside 1:1: Instrument Name: [id number] Gastroscope ___ Procedure: Upper GI endoscopy Indications: Suspected esophageal reflux Providers: QUIQUE CARLSON MD (Doctor) Referring MD: KALYANI GARCIA (Referring MD) Medicines: Monitored Anesthesia Care Complications: [...] Olympus Gastrointestinal Videoscope, Model #[id number] Censitrac # [id number], SN# [id number] was introduced through the mouth, and advanced [...] pathology results. Procedure Code(s): --- Professional --- 34452, Esophagogastroduode noscopy, flexible, transoral; with biopsy, single or multiple CPT copyright 2021 [employer]. All rights reserved. The codes documented in this report are preliminary and upon industrial cook review may be revised to meet current compliance requirements. Quique Carlson M.D. __ QUIQUE CARLSON MD 03/04/2025 10:05:57 AM Number of Addenda: 0 Note Initiated On: 03/04/2025 9:42 AM Procedure Date: 03/04/2025 9:42:39 AM Total Procedure Duration: 0 hours 5 minutes 40 seconds Estimated Blood Loss: Scope In: 9:55:34 AM Scope Out: 10:01:14 AM RADIOLOGY RESULTS 03/04/2025 9:42 AM CDT us Kalyani Contegabino DIRECTOR OF PARTNER MARKETING [employer] LAYUP LINE CORE LAYER PROCEDURES Final Res ult RADIOLOGY RESULTS from Last 3 Months Insurance [facility] Care Teams Officer Captain Relationship Specialty Start Date End Date Dayton Hendricks MD [facility] [address], [place] [address] PCP - General Family Medicine 01/30/25
--- OUTSIDE RECORDS SUMMARY | 2025-03-17 10:40 | XMS_ITS | Encounter Summary ---
Author Organization [facility] Address [address] [place] [address] Care Team Providers Care Fender Mechanic Name Role Phone Dayton Hendricks MD Primary Care Provider Encounter Details Date Type Department Care Team (Late st Contact Info) Description 01/30/2025 [facility]C [facility] Social History Tobacco Use Types Packs/Day Years Used Date Smoking Tobacco: Never Assessed Comments Unknown Sex and Gender Information Value [...] on filedocumented in this encounter Care Teams Fender Mechanic Relationship Specialty Start Date End Date Dayton Hendricks MD [facility] [address] [place] [address] PCP - General Family Medicine 01/30/25 documented as of this encounter
--- OUTSIDE RECORDS SUMMARY | 2025-03-17 10:40 | XMS_ITS | Encounter Summary ---
Author Organization [facility] Address [address] [place] [address] Care Team Providers Care Medical Surgical Tech Name Role Phone Dayton Hendricks MD Primary Care Provider Encounter Details Date Type Department Care Team (Late st Contact Info) Description 01/30/2025 MyC [facility] Social History Tobacco Use Types Packs/Day Years [...] on filedocumented in this encounter Care Teams Medical Surgical Tech Relationship Specialty Start Date End Date Dayton Hendricks MD [facility] [address]. [place] [address] PCP - General Family Medicine 01/30/25 documented as of this encounter
[2025-03-17 10:58] VITALS: BP 175/79; PULSE 96; RESP 18; TEMP 36.7; O2SAT 97; BMI 53.3
[2025-03-17 12:08] LABS: Appearance Urine Cloudy (Clear)
--- NOTE | 2025-03-17 12:11 | ED.GENADULT ---
HPI - General Adult General Chief complaint: Back Injury/Pain Stated complaint: Back pain started Tuesday Time Seen by Provider: 03/17/25 11:11 History of Present Illness HPI narrative: [age] year white female with low back pain for last couple of days. Started Tuesday, now it is more on the left side that wraps around her belt line little bit to her hips. Worse with movement. She did have an EGD that looks benign for GERD couple weeks ago. She has not had anterior abdominal pain. She has had no bleeding rectally or vomiting blood. No history of kidney stones. Any movement causes worse pain. No radicular symptoms down her legs. No bowel or bladder incontinence. She reports she had a significant episode of back pain about 10 years ago but otherwise has been un troubled by that. Related Data Home Medications ?Medication ?Instructions ?Recorded ?Confirmed calcium 250 mg-D3 400 tab PO 06/18/22 03/01/25 unit-magnesium 40 be-N8-Vi-copper-sim tablet cholecalciferol (vitamin D3) 25 50 mcg PO QDAY 06/18/22 03/01/25 mcg (1,000 unit) capsule fluticasone propionate 50 2 spray intranasal QDAY 06/18/22 03/01/25 mcg/actuation nasal spray,suspension (Flonase Allergy Relief) lactobacillus combination no.4 3 3,000 mmu cells PO QDAY 06/18/22 03/01/25 billion cell capsule (Probiotic) loratadine 10 mg tablet (Claritin) 10 mg PO QDAY 06/18/22 03/01/25 multivitamin (Daily Multi-Vitamin 1 tab PO QDAY 06/18/22 03/01/25 tablet) omega 7-kie-tgz-fish oil 100 cap PO 06/18/22 03/01/25 mg-160 mg-1,000 mg capsule (Fish Oil) vitamin B complex 1 tab PO QDAY 06/18/22 03/01/25 levonorgestrel (Mirena) 1 device intrauterine ONCE 03/15/24 03/01/25 Previous Rx's ?Medication ?Instructions ?Recorded escitalopram oxalate 20 mg tablet 20 mg PO QDAY #90 tabs 10/31/24 Allergies Allergy/AdvReac Type Severity Reaction Status Date / Time penicillin V Allergy Mild Rash Verified 03/17/25 11:03 Review of Systems Status of ROS: Reports: 6 or more systems reviewed and unremarkable except as noted in History and below PFSH PFSH Medical History Depression ?F32.A - Depression, unspecified (ICD-10) GERD (gastroesophageal reflux disease) ?K21.9 - Gastro-esophageal reflux disease without esophagitis (ICD-10) Vitamin D deficiency ?E55.9 - Vitamin D deficiency, unspecified (ICD-10) Snoring ?R06.83 - Snoring (ICD-10) Morbid obesity ?E66.01 - Morbid (severe) obesity due to excess calories (ICD-10) Migraine ?G43.909 - Migraine, unspecified, not intractable, without status migrainosus (ICD-10) History of varicella ?Z86.19 - Personal history of other infectious and parasitic diseases (ICD-10) Generalized anxiety disorder ?F41.1 - Generalized anxiety disorder (ICD-10) Deviated nasal septum ?J34.2 - Deviated nasal septum (ICD-10) Surgical History History of vaginal delivery History of dilation and curettage ?Z98.890 - Other specified postprocedural states (ICD-10) Family History Aunt Breast cancer Paternal Grandfather Diabetes Skin cancer Thyroid disease Mother Migraine Other Depression Social History Narrative: exercises regularly-chandler/elliptical 2x/week, , 3 kids, homemaker, nonsmoker, no EtOH What is your current living situation?: I presently have a place to live Problems where you live: no known problems In the past 12 months, utilities in danger of being shut off: no In past 12 months, lack of transportation kept you from medical appts, meetings, work, or getting things needed for daily living: no In the past 12 mos, have been you worried that your food would run out before you had money to buy more?: never true In the past 12 mos, the food you bought just didn't last and you didn't have money to buy more?: never true Smoking Status: Former smoker (as teenager) How often does anyone, including family, friends and others, physically hurt you: never How often does anyone, including family, friends and others, insult or talk down to you: never How often does anyone, including family, friends and others, threaten you with harm: never How often does anyone, including family, friends and others, scream or curse at you: never Exam Narrative: Exam Narrative: Objective: Patient's vital signs show elevated blood pressure, afebrile In moderate distress and discomfort. She was being still she is pretty comfortable with movement of any kind she gets low back pain. No radicular symptoms as mention Normal strength sensation or lower extremities able lift her leg a little bit off the ground and flex extend her hips without marked discomfort but she does have back pain. Neurologic grossly nonfocal Anterior abdomen is unremarkable Patient has elevated BMI. This is 53.3 Const: Vital Signs, click to edit/add: Vital Signs - 24 hr 03/17/25 10:58 03/17/25 12:59 Temperature 98.1 F Pulse Rate [Left P ulse Oximeter] 96 83 Respiratory Rate 18 16 Blood Pressure [Ri ght Forearm] 175/79 H Pulse Oximetry 97 97 Oxygen Delivery Me thod Room Air Room Air Course Vital Signs Vital signs: Initial Vital Signs Temperature 98.1 F 03/17/25 10:58 Temperature Source Temporal Artery Scan 03/17/25 10:58 Pulse Rate 96 03/17/25 10:58 Respiratory Rate 18 03/17/25 10:58 Blood Pressure 175/79 H 03/17/25 10:58 Blood Pressure Mean 111 H 03/17/25 10:58 Blood Pressure Position Sitting 03/17/25 10:58 Pulse Oximetry 97 03/17/25 10:58 Oxygen Delivery Method Room Air 03/17/25 10:58 Vital Signs Temperature 98.1 F 03/17/25 10:58 Pulse Rate 96 03/17/25 10:58 Respiratory Rate 18 03/17/25 10:58 Blood Pressure 175/79 H 03/17/25 10:58 Pulse Oximetry 97 03/17/25 10:58 Oxygen Delivery Method Room Air 03/17/25 10:58 Temperature 98.1 F 03/17/25 10:58 Pulse Rate 83 03/17/25 12:59 Respiratory Rate 16 03/17/25 12:59 Blood Pressure 175/79 H 03/17/25 10:58 Pulse Oximetry 97 03/17/25 12:59 Oxygen Delivery Method Room Air 03/17/25 12:59 Medications Administered Medications: Discontinued Medications Generic Name Dose Route Start Last Admin Trade Name Christine PRN Reason Stop Dose Admin Ketorolac Tromethamine 60 mg 03/17/25 12:09 03/17/25 12:22 Ketorolac 30 Mg/Ml Inj IM 03/17/25 12:10 60 mg ONCE ONE Administration Morphine Sulfate 10 mg 03/17/25 12:09 03/17/25 12:22 Morphine 10 Mg/Ml Inj IM 03/17/25 12:10 10 mg ONCE ONE Administration Prednisone 50 mg 03/17/25 12:09 03/17/25 12:21 Prednisone 10 Mg Tablet PO 03/17/25 12:10 50 mg ONCE ONE Administration Medical Decision Making MDM Narrative Medical decision making narrative: [age] year white female with 2 day history of low back pain, no radicular component. No symptoms suggestive of other intra-abdominal pathology. At this point it seems more related to low back discomfort myofascial type pain. At this point will give her an injection of morphine 10 mg IM and Toradol 60 mg IM. Will give her prednisone 50 mg orally as well. If she improves with this she can go home rest light activity Kinnear/prednisone/ibuprofen or Aleve for home treatment. Recommend icing 10 minutes 4 5 times a day to the low back possible, gentle range of motion and follow up with primary care in the next 2-3 days for reassessment. Light activity in the interim. Return as needed. Addendum 12:53 p.m. the patient feels like the injections in the medicine has taken the ?edge off and and ?her pain in her back. She also has an incidental which appears to be UTI with white cells and red cells. Her symptoms are not consistent with kidney stones I do not think further imaging is indicated. Is more consistent with mechanical low back pain. Will send her home with Kinnear/prednisone/ibuprofen on a regular basis, will prescribe Macrobid for her UTI. Recommend icing a regular basis and follow up with regular doctor next 2-3 days problems or concerns at that point she could see in home caregiver if she wishes as well. Lab Data Labs: Lab Results 03/17/25 Range/Units Unknown Urine Color Yellow (Yellow) Urine Appearance Cloudy A (Clear) Urine pH 7.0 (5.0-8.5) Ur Specific Outing 1.015 (1.000-1.030) Urine Protein Negative (Negative) Urine Glucose (UA) Negative (Negative) Urine Ketones Negative (Negative) Urine Blood 1+ A (Negative) Urine Nitrite Negative (Negative) Urine Bilirubin Negative (Negative) Urine Urobilinogen 0.2 (0.2-1.0) Ur Leukocyte Esterase 1+ A (Negative) Urine RBC 10-25 A (0-2) Urine WBC 10-25 A (0-5) Ur Squamous Epith Cells Moderate A (None-Few) Urine Bacteria Moderate A (None) Discharge Plan Discharge Clinical Impression: Acute low back pain Patient Disposition: Home w/ Parent or Adult Condition: Improved Additional Instructions: Ice to the back 5-10 minutes 4 5 times a day for the next several days, light activity, gentle range of motion of the back and walking would be recommended. Kinnear, prednisone, and ibuprofen to be taken 600-800 mg 3 times a day for the next few days. Follow-up with primary care in 2-3 days. Return to ED sooner problems or concerns. Macrobid for UTI. Activity Level: Light activity Discharge Diet: Low Fat/Low Cholesterol Prescriptions: No Action fluticasone propionate [Flonase Allergy Relief] 50 mcg/actuation spray,suspension 2 spray intranasal QDAY Rx Instructions: administer into each nostril loratadine [Claritin] 10 mg tablet 10 mg PO QDAY multivitamin [Daily Multi-Vitamin] Tablet 1 tab PO QDAY Probiotic 3 billion cell capsule 3,000 mmu cells PO QDAY Rx Instructions: administer with a meal Fish Oil 100-160-1,000 mg capsule PO cholecalciferol (vitamin D3) 25 mcg (1,000 unit) capsule 50 mcg PO QDAY vitamin B complex Tablet 1 tab PO QDAY [id number]-Tl-Mt-[id number] 250 mg-400 unit -40 mg-5 mg tablet PO Mirena 21 mcg/24 hr (8 yrs) 52 mg intrauterine device 1 device intrauterine ONCE Rx Instructions: as a single dose escitalopram oxalate 20 mg tablet 20 mg PO QDAY Qty: 90 3RF Follow Up/Referrals: Dayton Hendricks MD [Primary Care Provider, Family Practice] Stand Alone Forms: [facility] Info Instructions
[2025-03-17 12:59] VITALS: PULSE 83; RESP 16; O2SAT 97
== END 2025-03-17 13:00 | disposition home or self-care (01) ==
LOC: ED 12:16
PROVIDERS: Emergency Provider Family Medicine; PCP Family Medicine
DX: M54.50 Low back pain, unspecified (principal)
CPT/HCPCS: 81001; 81003; 87086; 96372; 99284; J1885; J2270; J7512